=== PATIENT | female | born 1955 | race Caucasian/White ===

== ENCOUNTER → 2023-11-24 08:20 | Outpatient (REF) | payer MEDICARE, OTHER, SELFPAY | LOC: PAVMRI 08:20 | PROVIDERS: ATTENDING PHYSICIAN Physician Assistant | DX: M25.512 Pain in left shoulder (principal) | CPT/HCPCS: 73221 ==

== ENCOUNTER → 2023-12-06 09:51 | Outpatient (REF) | payer MEDICARE, OTHER, SELFPAY ==
[2023-12-06 13:33] LABS: ALT (SGPT) 27 U/L (0-35); AST (SGOT) 30 U/L (14-36); Albumin 4.5 g/dl (3.5-5.0); Alkaline Phosphatase 74 U/L (38-126); Blood Urea Nitrogen 22 mg/dl (7-17); Calcium 9.4 mg/dl (8.4-10.2); Carbon Dioxide 30 mmol/L (22-30); Chloride 97 mmol/L (98-107); Glucose 106 mg/dl (70-99); HDL Cholesterol 66 mg/dl; LDL Cholesterol, Calculated 90 mg/dl; Potassium 3.8 mmol/L (3.5-5.1); Sodium 138 mmol/L (135-145); Total Bilirubin 0.6 mg/dl (0.2-1.3); Total Cholesterol 185 mg/dl (50-199); Total Protein 7.2 g/dl (6.3-8.2); Triglyceride 146 mg/dl (10-149); Very Low Density Lipoprotein 29 mg/dl (0-30); eGFR > 60.00
[2023-12-06 13:46] LABS: TSH 0.76 uIU/ml (0.47-4.68)
== END ==
LOC: REG 09:51
PROVIDERS: ATTENDING PHYSICIAN Nurse Practitioner Family
DX: I10 Essential (primary) hypertension (principal); E03.9 Hypothyroidism, unspecified; E78.00 Pure hypercholesterolemia, unspecified; R74.8 Abnormal levels of other serum enzymes
CPT/HCPCS: 36415; 80053; 80061; 84443

== ENCOUNTER → 2023-12-09 06:29 | Day surgery (SDC) | payer MEDICARE, OTHER, SELFPAY | LOC: GI 06:29 | PROVIDERS: ATTENDING PHYSICIAN Internal Medicine | DX: K22.89 Other specified disease of esophagus (principal); K44.9 Diaphragmatic hernia without obstruction or gangrene; K31.89 Other diseases of stomach and duodenum; R07.9 Chest pain, unspecified | CPT/HCPCS: 43239; 88305 ==

== ENCOUNTER → 2023-12-13 07:51 | Outpatient (REF) | payer MEDICARE, OTHER, SELFPAY ==
[2023-12-13 08:57] LABS: Hemoglobin 11.8 g/dL (12.0-16.0); Mean Corp Hgb Conc. 31.9 g/dL (33.0-37.0); Mean Corpuscular Hgb 29.3 pg (27.0-31.0); Mean Corpuscular Volume 91.8 fL (81.0-99.0); Mean Platelet Volume 9.6 fL (7.4-10.4); Platelet Count 336 10^3/uL (130-400); Red Blood Cell Count 4.03 10^6/uL (4.20-5.40); Red Cell Dist. Width 13.2 % (11.5-14.5); White Blood Cell Count 6.7 10^3/uL (4.8-10.8)
[2023-12-13 09:29] LABS: Blood Urea Nitrogen 18 mg/dl (7-17); Calcium 9.5 mg/dl (8.4-10.2); Carbon Dioxide 29 mmol/L (22-30); Chloride 102 mmol/L (98-107); Glucose 111 mg/dl (70-99); Potassium 4.1 mmol/L (3.5-5.1); Sodium 138 mmol/L (135-145); eGFR > 60.00
== END ==
LOC: SDSPAT 07:51
PROVIDERS: ATTENDING PHYSICIAN Orthopaedic Surgery Hand Surgery; FAMILY PHYSICIAN Nurse Practitioner Family
DX: Z01.818 Encounter for other preprocedural examination (principal)
CPT/HCPCS: 36415; 80048; 85027; 93005

== ENCOUNTER 2023-12-28 06:08 | Day surgery (SDC) | payer MEDICARE, OTHER, SELFPAY ==
[2023-12-13 12:05] VITALS: BMI 28.4
[2023-12-28] VITALS (12 sets, daily range): BP systolic 128–154; BP diastolic 49–87; BMI 28.4
[2023-12-28] MEDS: CELEBREX 200 MG PO (06:35)
[2023-12-28] MEDS: TYLENOL 1000 MG PO (06:36)
[2023-12-28] MEDS: NORMOSOL-R 1000 IV (06:36)
[2023-12-28] MEDS: DILAUDID 0.25 MG IV ×2 (08:56→09:02)
[2023-12-28] MEDS: DILAUDID 0.5 MG IV ×2 (09:14→09:27)
[2023-12-28] MEDS: ROXICODONE 5 MG PO (11:11)
== END 2023-12-28 11:41 | disposition home or self-care (01) ==
LOC: SDS 06:08
PROVIDERS: ATTENDING PHYSICIAN Orthopaedic Surgery Hand Surgery
DX: M75.122 Complete rotator cuff tear or rupture of left shoulder, not specified as traumatic (principal); M75.42 Impingement syndrome of left shoulder; M25.712 Osteophyte, left shoulder; D17.9 Benign lipomatous neoplasm, unspecified; M19.012 Primary osteoarthritis, left shoulder
CPT/HCPCS: 29827; 29828; 29826; 88304; C1713

== ENCOUNTER 2023-12-30 23:04 | Observation (INO) | payer MEDICARE, OTHER, SELFPAY ==
[2023-12-30] VITALS (8 sets, daily range): BP systolic 138–164; BP diastolic 74–92; BMI 30.2
[2023-12-30 19:37] LABS: Glucose - Point of Care 93 mg/dl (70-99)
[2023-12-30 20:14] LABS: % Basophils 1.4 % (0-2); % Eosinophils 3.3 % (0-6); % Immature Granulocytes 0.5 % (0-0.5); % Lymphocytes 29.3 % (20.5-51.1); % Monocytes 8.3 % (1.7-9.3); % Neutrophils 57.2 % (42.2-75.2); Absolute Basophils 0.2 10^3/uL (0-0.2); Absolute Eosinophils 0.4 10^3/uL (0-0.7); Absolute Immature Granulocytes 0.1 10^3/uL (0-0.05); Absolute Lymphocytes 3.9 10^3/uL (1.2-3.4); Absolute Monocytes 1.1 10^3/uL (0.1-0.6); Absolute Neutrophils 7.5 10^3/uL (1.4-6.5); Hematocrit 37.4 % (37.0-47.0); Hemoglobin 12.1 g/dL (12.0-16.0); Mean Corp Hgb Conc. 32.4 g/dL (33.0-37.0); Mean Corpuscular Volume 92.6 fL (81.0-99.0); Mean Platelet Volume 9.6 fL (7.4-10.4); Nucleated Red Blood Cells % 0 %; Platelet Count 364 10^3/uL (130-400); Red Blood Cell Count 4.04 10^6/uL (4.20-5.40); Red Cell Dist. Width 13.9 % (11.5-14.5); White Blood Cell Count 13.2 10^3/uL (4.8-10.8)
[2023-12-30 20:20] LABS: ALT (SGPT) 36 U/L (0-35); AST (SGOT) 39 U/L (14-36); Albumin 4.6 g/dl (3.5-5.0); Alkaline Phosphatase 72 U/L (38-126); Blood Urea Nitrogen 27 mg/dl (7-17); Calcium 9.5 mg/dl (8.4-10.2); Carbon Dioxide 26 mmol/L (22-30); Chloride 101 mmol/L (98-107); Estimated Creatinine Clearance 43 ml/min; Glucose 101 mg/dl (70-99); Potassium 3.4 mmol/L (3.5-5.1); Sodium 136 mmol/L (135-145); Total Bilirubin 0.6 mg/dl (0.2-1.3); Total Protein 7.4 g/dl (6.3-8.2); eGFR 44.24
--- NOTE | 2023-12-30 22:10 | ED.GENMED ---
History of Present Illness
General
Chief Complaint: Change in Mental Status
Source: patient and family
Exam Limitations: none
Time Seen by Provider: 12/30/23 19:49
Nursing documentation reviewed up to this point in time: agreed with
Travel History
Have you had any contact with someone who has COVID-19?: No
Do you have any symptoms of coronavirus? Fever > 100 degrees, chills, cough, shortness of breath, sore throat, loss of taste or smell, muscle aches, or headache?: No
History of Present Illness
History of Present Illness:
Patient status post left shoulder surgery 3 days ago, presents ED secondary to sudden onset of confusion noted by spouse, shortly after having dinner this evening around 5:15 PM. For example, patient cannot recall what happened versus shoulder and
cannot recall her date of as well as the president of the country. There was no slurred speech, nor any other neurological deficit noted by family. Since then, her mental status has improved, but patient still having difficulty recalling
certain facts, including her daily medications. Otherwise, patient is only complaining of left shoulder pain and headache. Denies loss of sensation or weakness. Denies difficulty speech. Denies blurred vision denies dizziness. Denies previous
history of similar symptoms. Patient has been taking OxyContin for pain relief after procedure, but her last dose was this morning.
Past History
Past History
ED Past Medical History: HTN
ED Past Surgical History: Gynecological
Social History
Tobacco: Non-smoker
Alcohol: Occasional
Drug: None
Personal:
Living: with family
Employment: Employed
Review of Systems
Review of Systems
Allergies reviewed?: Yes
All Other Systems: ROS reviewed and negative except as documented in HPI and ROS
Constitutional: Reports no symptoms
EENT: Reports no symptoms
Respiratory: Reports no symptoms
Cardiac: Reports no symptoms
ABD/GI: Reports nausea and vomiting
: Reports no symptoms
Musculoskeletal: Reports no symptoms
Skin: Reports no symptoms
Neurological: Reports other (confusion)
Phy Exam
Physical Exam
Physical Exam:
Physical Exam
General: mild painful distress, not acutely ill. afebrile.
Head: nc/at. eomi
Neck: supple. no meningeal signs.
Heart: s1/s2 regular rate and rhythm, no murmur. equal radial pulses.
Lungs: no acute respiratory distress. clear bilaterally
Abdomen: normal bowel sounds. not tender.
Neuro: alert and oriented. no focal neurological deficits. normal speech.
Skin: no rash
Psychiatric: well kept. interactive and cooperative
Extremities: no edema. no calf tenderness.
Course
Orders/Labs/Results
Orders:
Orders
12/30/23 19:49
Electrocardiogram (*1) Urgent
Reason for Study: Other
Other Reason for Exam: change in mental status
12/30/23 19:50
EKG- Treatment ONCE
12/30/23 19:55
CMP [Comprehensive Metabolic Panel] Urgent
Complete Blood Count/With Diff Urgent
12/30/23 20:25
CT Head W/o Iv Contrast Urgent
Comment:
Reason For Exam: mental status change
12/30/23 22:07
Acetaminophen [Tylenol] 1,000 mg PO NOW STA
Aspirin 325 mg PO NOW STA
12/30/23 22:08
Acetaminophen [Tylenol] 1,000 mg .ROUTE .STK-MED ONE
Aspirin 325 mg .ROUTE .STK-MED ONE
12/30/23 22:50
Potassium Chloride [KCl] 40 meq PO NOW STA
12/30/23 22:55
Admit/Transfer Patient As Directed
Co-Sign Provider:
Level of Care: Observation services
Assign to:: Telemetry
Physician / Group: janet smyth
Diagnosis: TGA/TIA
Reason for Telemetry: CVA/TIA
Date to Stop Telemetry: 01/02/24
Time to Stop Telemetry: 11:00
12/30/23 22:56
Code Status As Directed
Resuscitation Status: Full Code
12/30/23 23:00
Flush (0.9% Sodium Chloride) [Flush (Nss)] See Dose Instructions IV PER PROTOCOL
12/30/23 23:41
Urinalysis Reflex To Culture Urgent
Date Specimen was Collected: 12/30/23
Time Specimen was Collected: 23:34
12/31/23 01:10
0.9% Sodium Chloride 1000 ml [Nss] 1,000 ml IV 80 mls/hr
0.9% Sodium Chloride [Nss (Preservative Free)] See Protocol IV PRN PRN
Acetaminophen [Tylenol/Feverall] 650 mg RECTAL Q4HPRN PRN
Acetaminophen [Tylenol] 650 mg PO Q4HPRN PRN
FOLic ACID [Folvite] 1 mg 0.9% Sodium Chloride 50 ml [Nss] 50 ml IV DAILYPRN
Lorazepam [Ativan] 1 mg IV Q1HPRN PRN
Lorazepam [Ativan] 1 mg PO Q2HPRN PRN
Lorazepam [Ativan] 2 mg IV Q1HPRN PRN
Oxycodone [Roxicodone] 5 mg PO Q6H PRN
12/31/23 01:10
Case Management Consult ONCE
Case Management Consult: Discharge Planning
Comment: stroke/tia
Case Management Consult Once
Case Management Consult: Other
Comment: Substance abuse counseling
DIETARY CONSULT Routine
Reason for Consult: Nutrition support, possible refeeding guidelines
DIETARY CONSULT Routine
Reason for Consult: stroke/TIA
NEUROLOGY CONSULT Urgent
Consulting Provider: Krystle Roman
Was physician already notified: Yes
[employer] Urgent
Activity As Directed
Activity Level: As Tolerated
MSAS SCORE As Directed
MSAS Score 0-4: Repeat MSAS every 2 hours until 0-4 for three consecutive assessments, then every 4 hours x 48
hours.
MSAS Score 5-7: For MILD withdrawl symptoms. Repeat MSAS and RASS every 2 hours
MSAS Score 8-11: For MODERATE withdrawal symptoms. Repeat MSAS and RASS every 1 hour. Consider ICU or IMU
level of care.
MSAS Score > 11: For SEVERE withdrawal symptoms. Repeat MSAS and RASS every 1 hour. Notify provider, consider
ICU level of care.
MSAS Additional Instructions: If no improvement or no decrease in score from severe to moderate within 12
hours, consult psychiatry
MSAS Notify Provider: Notify provider if patient requires more than 10 mg of Lorazepam in eight hour period.
NIH Stroke Scale As Directed
Directions: Per protocol
Comment: every shift and with any change in condition or mental status
Neurological Checks As Directed
Frequency: q4h
Additional Instructions:: q4h x 24h upon admission to the floor, then qshift & with any change in condition
and mental status
Patient Education As Directed
Type: Stroke education packet
Comment: provide to patient and family
Pneumatic Compression Sleeves As Directed
Type: Thigh high
Vital Signs As Directed
Frequency: Per unit guidelines
Ot Eval And Treat Routine
Pt Eval And Treat Routine
Activity Level: As Tolerated
DX Deep Vein Thrombosis Video Routine
12/31/23 01:26
B-Hydroxybutyrate Urgent
Basic Metabolic Panel IN AM
Cardiovascular Evaluation IN AM
Complete Blood Count/No Diff IN AM
GGTP Urgent
Glycohemoglobin (HgbA1c) Routine
Magnesium Urgent
Phosphorus Urgent
12/31/23 07:00
Levothyroxine [Synthroid] 100 mcg PO DAILY AT 0700
12/31/23 08:00
Aspirin Chewable [Low Strength Aspirin] 81 mg PO DAILY
Bupropion Regular Release [Wellbutrin Regular Release] 100 mg PO DAILY
Duloxetine Delayed Release [Cymbalta Delayed Release] 30 mg PO DAILY
FOLic ACID [Folvite] 1 mg PO DAILY
Gabapentin [Neurontin] 300 mg PO DAILY
Pantoprazole [Protonix] 40 mg PO DAILY
Thiamine Injection 200 mg IV Q12
doxycycline hyclate 100 mg PO BID
12/31/23 09:26
Urinalysis Routine
Date Specimen was Collected: 12/31/23
Time Specimen was Collected: 09:25
12/31/23 22:00
Famotidine [Pepcid] 20 mg PO HS
Rosuvastatin Calcium [Crestor] 5 mg PO HS
01/02/24 11:00
DC Protocol for Telemetry ONCE
01/03/24 08:00
Thiamine HCl [Vitamin B1] 100 mg PO BID
Abnormal Lab Results
12/30/23
19:55
WBC 13.2 H 10^3/uL
(4.8-10.8)
RBC 4.04 L 10^6/uL
(4.20-5.40)
MCHC 32.4 L g/dL
(33.0-37.0)
Abs Immat Gran (auto) 0.1 H 10^3/uL
(0-0.05)
Absolute Neuts (auto) 7.5 H 10^3/uL
(1.4-6.5)
Absolute Lymphs (auto) 3.9 H 10^3/uL
(1.2-3.4)
Absolute Monos (auto) 1.1 H 10^3/uL
(0.1-0.6)
Potassium 3.4 L mmol/L
(3.5-5.1)
BUN 27 H mg/dl
(7-17)
Creatinine 1.3 H mg/dL
(0.6-1.0)
Glucose 101 H mg/dl
(70-99)
AST 39 H U/L
(14-36)
ALT 36 H U/L
(0-35)
12/30/23 19:55
12/30/23 19:55
Vital Signs
Initial and Last Documented VS:
Initial Vital Signs
BP
164/81
12/30/23 19:33
Last Documented Vital Signs
Temp Pulse Resp BP Pulse Ox
98.8 F 108 17 146/80 95
12/31/23 11:59 12/31/23 11:59 12/31/23 11:59 12/31/23 11:59 12/31/23 11:59
MDM/Problems Addressed
MDM/Problems Addressed:
CT head: NAD.
Discussed with (neurology) - likely TGA, but difficult to exclude possible TIA. As such, recommends starting patient on aspirin and admitting for further observation.
*Critical Care Note
Total Time (30-74mins, 75-104mins- exclusive of procedures): Not Applicable
ED Attending Note
-
Portions of this chart may have been created with voice recognition software.� Occasional wrong word or��sound alike� substitutions may have occurred due to the inherent limitations of voice recognition software.
Discharge Plan
Departure
Patient Disposition: Admit
Date of Disposition: 12/30/23
Time of Disposition: 22:16
Presentation/result/management discussed w/ accepting MD/DO: Hospitalist
Discharge Problem:
Altered mental status
Interventions
Interventions:
*Risk Screen - Suicide Last Done: 12/30/23 19:36
*General Assessment Last Done: 12/30/23 19:36
*Neglect/Abuse Screening Last Done: 12/30/23 19:36
ED- Fall Risk Assessment Last Done: 12/30/23 19:50
*ED COVID-19 Vaccine History Last Done: 12/30/23 19:50
*Nursing Disposition Last Done: 12/31/23 01:14
ED- Pulmonary Assessment Last Done: 12/30/23 19:50
ED- Neurological Assessment Last Done: 12/30/23 19:50
ED- Cardiac Assessment Last Done: 12/30/23 19:50
ED Swallowing Screen Last Done: 12/30/23 20:05
Discharge Date and Time
Discharge Date/Time: 12/31/23 01:15
[2023-12-30] MEDS: TYLENOL 1000 MG PO (22:19)
[2023-12-30] MEDS: ASPIRIN 325 MG PO (22:19)
--- NOTE | 2023-12-30 22:24 | HPS.HSE ---
Family Physician
-
Family Physician: ARSH Bell
Chief Complaint
-
confusion
History of Present Illness
68 year old with PMH for hypothyroidism, htn, hld, kidney cysts, anxiety, GERD presented to us with sudden onset of confusion noted by spouse, shortly after having dinner this evening around 5:15 PM. she felt nauseous, went to the bedroom.
stated, she was not making any sense. she felt very scared. she forgot, she just had shoulder surgery cannot recall her date of as well as the president of the country. confusion lasted for one hour. denied slurred speech. denied Spencer, dizzy or
syncopal episode. denied chest pain, sob. denied abdominal pain, n,v,d. denied dysuria or hematuria. Patient has been taking OxyContin for pain relief after procedure, but her last dose was this morning.
Ct head with no acute finding. received a dose of aspirin in ER. admitting for management.
Medical History
Past Medical History
Past Medical History: Reports Other
Additional Past Medical History:
hypothyroidism, htn, hld, kidney cysts, anxiety, GERD
Past Surgical History: Reports Other
Additional Past Surgical History:
left shoulder reconstruction
right shoulder surgery
oophorectomy
right knee surgery
right elbow surgery
left eye surgery
Social History
Tobacco: Non-smoker
Alcohol: Daily (3 glasses of wine)
Drug: None
Personal:
Living: With Family
Family History
Family History: Not pertinent
Allergies / Home Medications
Allergies reflects when Allergies were last updated in [employer].
Home Medications with original date entered in [employer]
Allergy/Medication List:
Allergies
Allergy/AdvReac Type Severity Reaction Status Date / Time
Cephalosporins Allergy Severe Rash Verified 12/28/23 06:14
penicillin G Allergy Severe Rash Verified 12/28/23 06:14
Penicillins Allergy Severe Rash Verified 12/28/23 06:14
vancomycin AdvReac Severe Rash Verified 12/28/23 06:14
NOT.[id number] - Not Allergy Severe Unknown Uncoded 06/03/20 22:59
Converted 5. See Text.
Home Medications
levothyroxine 100 mcg tablet (Synthroid) 100 mcg PO DAILY 01/10/11
gabapentin 400 mg capsule 300 mg PO DAILY 09/03/15
hydrochlorothiazide 25 mg tablet 50 mg PO DAILY 09/03/15
famotidine 20 mg tablet 20 mg PO HS 12/24/23
omeprazole 20 mg tablet,delayed release 20 mg PO DAILY 12/24/23
rosuvastatin 5 mg tablet 5 mg PO HS 12/24/23
bupropion HCl 100 mg tablet 100 mg PO DAILY 12/30/23
doxycycline hyclate 100 mg tablet 100 mg PO BID 12/30/23
duloxetine 30 mg capsule,delayed release 30 mg PO DAILY 12/30/23
meloxicam 15 mg tablet 15 mg PO DAILY 12/30/23
oxycodone 5 mg tablet 5 mg PO Q6H PRN moderate pain 12/30/23
Review of Systems
-
Constitutional: Reports No Symptoms
EENT: Reports No Symptoms
Respiratory: Reports No Symptoms
Cardiac: Reports No Symptoms
Abdomen/GI: Reports No Symptoms
: Reports No Symptoms
Musculoskeletal: Reports No Symptoms
Skin: Reports No Symptoms
Neurological: Reports Other (confusion)
Endocrine: Reports No Symptoms
Hematologic/Lymphatic: Reports No Symptoms
Psych: Reports No Symptoms
Physical Exam
Vital Signs
Vital Signs
Temp Pulse Resp BP Pulse Ox
98.8 F 74 13 151/86 95
12/30/23 19:36 12/30/23 22:15 12/30/23 22:15 12/30/23 22:15 12/30/23 22:15
Physical Exam
General: Well Developed, Well Nourished and No Apparent Distress
HEENT: NormoCephalic, Moist mucous membranes and Atraumatic
Respiratory: Clear
Cardiac: S1/S2 and Regular Rhythm; No Murmur or Rub
GI: Soft, Non Tender, Non Distended and Normal Bowel Sounds; No Organomegaly
Rectal: Deferred by Provider
Musculoskeletal: No Clubbing, No Cyanosis, No Edema and Other (left shoulder dressing)
Skin: No Rash
Neuro: AO x 3 and Nonfocal/grossly intact
Psych: Calm
Laboratory Results
-
12/30/23 19:55
12/30/23 19:55
Laboratory Results
Total Bilirubin 0.6 mg/dl (0.2-1.3) 12/30/23 19:55
AST 39 U/L (14-36) H 12/30/23 19:55
ALT 36 U/L (0-35) H 12/30/23 19:55
Alkaline Phosphatase 72 U/L (38-126) 12/30/23 19:55
Data Reviewed
-
CT Scan: Report Reviewed by me
Lab Data: Labs Reviewed by me
Impression/Plan
-
# Sudden onset of confusion likely postprocedure transient global amnesia versus TIA
-CT head negative
-Aspirin continued
-continue neuro checks
-neurology consulted
# Status post elective left shoulder surgery
-oxy continued
# Leukocytosis likely stress reaction
-WBC 13.2,afebrile
-ctm
# Hypokalemia/acute kidney injury likely dehydration
-K3.4, creatinine 1.3
-normal saline continued
-kcl 40meq oral
-BMP in am
# Elevated transaminase likely dehydration
-AST 39, ALT 36
-fluids continued
#alcohol dependence
-drinks 3 glasses of wine daily
-monitor MSAS
-Not drinking since Wednesday
# Anxiety
-Bupropion continued
-Duloxetine continued
# GERD
-PPI continued
# Essential hypertension
-Hold HCTZ due to anthony and hypokalemia
# Hypothyroidism
-Levothyroxine continued
# Hyperlipidemia
-Statin continued
# DVT prophylaxis
-SCD
# CODE STATUS
-Full code
-
--- NOTE | 2023-12-30 22:48 | W.PN.UPDATE ---
Update Note
Progress Note Update
This update note is an addendum to H&P written by BEAN SNAPPER Ruth Banerjee.
I saw and examined the patient.
The BEAN SNAPPER's note was reviewed and I agree with the note.
Comment:
Ms. Negar Delatorre is a 68 yo woman with hx HTN, elective left shoulder surgery 3 days ago presents to the ER with sudden onset of confusion at home. Currently confusion is resolved.
Triage VS: T 98.8, P 76, RR 9, BP 153/92, SpO2 95%
LABS: WBC 13.2, Hg 12.1, PLT 364, Na 136, K+ 3.4, Cl 101, BUN 27, Cr 1.3, Glucose 101
MAR: tylenol and asa [address]
IMPRESSION:
No acute intracranial abnormality noted.
On exam patient is in no acute distress, AAO x3. Left arm with bandages, in sling. No edema. No focal neuro deficits (cannot test left arm).
Transient confusion
-may be 2/2 recent surgery/ effect of anesthesia/ oxycodone. Patient states she has only taken 4 oxycodone at home. She also stopped drinking post-op but presentation not typical for alcohol withdrawal
-admit to tele
-neuro checks
-s/p Asa in ER will continue
-ER discussed with Dr. Roman; given presentation more likely med effect hold off on further imaging for now until neurology evaluates tomorrow
Daily Alcohol use
-patient was drinking 3 glasses wine/day prior to surgery. Has not had a drink since Wednesday
-MSAS protocol
DVT PPx SCD
FULL CODE
[2023-12-31] VITALS (8 sets, daily range): BP systolic 126–154; BP diastolic 68–90; PULSE 79; O2SAT 100; BMI 28.7
[2023-12-31 00:02] LABS: Urine Albumin Negative (Neg - Trace); Urine Bilirubin Negative (Negative); Urine Character Clear (Clear); Urine Color Yellow; Urine Glucose Negative (Negative); Urine Ketone Negative (Negative); Urine Leukocyte Negative (Negative); Urine Nitrite Negative (Negative); Urine Occult Blood Negative (Negative); Urine Urobilinogen Negative (Neg - 1+)
[2023-12-31 01:32] LABS: Hematocrit 33.2 % (37.0-47.0); Hemoglobin 11.1 g/dL (12.0-16.0); Mean Corp Hgb Conc. 33.4 g/dL (33.0-37.0); Mean Corpuscular Hgb 29.6 pg (27.0-31.0); Mean Corpuscular Volume 88.5 fL (81.0-99.0); Mean Platelet Volume 9.1 fL (7.4-10.4); Platelet Count 303 10^3/uL (130-400); Red Blood Cell Count 3.75 10^6/uL (4.20-5.40); Red Cell Dist. Width 13.8 % (11.5-14.5); White Blood Cell Count 11.1 10^3/uL (4.8-10.8)
[2023-12-31] MEDS: ROXICODONE 5 MG PO ×3 (01:36→23:58)
[2023-12-31] MEDS: NSS 1000 IV (01:36)
[2023-12-31 01:56] LABS: Blood Urea Nitrogen 27 mg/dl (7-17); Calcium 9.3 mg/dl (8.4-10.2); Carbon Dioxide 27 mmol/L (22-30); Chloride 103 mmol/L (98-107); Estimated Creatinine Clearance 49 ml/min; Glucose 106 mg/dl (70-99); HDL Cholesterol 62 mg/dl; LDL Cholesterol, Calculated 68 mg/dl; Potassium 3.9 mmol/L (3.5-5.1); Sodium 139 mmol/L (135-145); Total Cholesterol 170 mg/dl (50-199); Triglyceride 203 mg/dl (10-149); Very Low Density Lipoprotein 40 mg/dl (0-30); eGFR 54.06
[2023-12-31] MEDS: KCL 40 MEQ PO (01:56)
[2023-12-31 01:57] LABS: GGTP 24 U/L (12-43); Magnesium 1.6 mg/dl (1.6-2.3); Phosphorus 4.8 mg/dl (2.5-4.5)
--- NOTE | 2023-12-31 03:00 | PTCARENOTE ---
pt is aaox3, but a little forgetful. NIH=0 and MSAS=0. pt right pupil=5mm. 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 pt surgical dressing c/d/i. pt reports headache- see MAR w/ pain medication w/+eff. pt is
oriented to room w/ call shaikh in reach.
[2023-12-31] MEDS: SYNTHROID 100 MCG PO (06:00)
[2023-12-31] MEDS: NEURONTIN 300 MG PO (08:52)
[2023-12-31] MEDS: LOW STRENGTH ASPIRIN 81 MG PO (08:52)
[2023-12-31] MEDS: FOLVITE 1 MG PO (08:52)
[2023-12-31] MEDS: PROTONIX 40 MG PO (08:52)
[2023-12-31] MEDS: CYMBALTA DELAYED RELEASE 30 MG PO (08:52)
[2023-12-31] MEDS: WELLBUTRIN REGULAR RELEASE 100 MG PO (08:53)
[2023-12-31] MEDS: THIAMINE INJECTION 200 MG IV ×2 (08:53→20:58)
--- NOTE | 2023-12-31 09:11 | CON.NEURO4 ---
Consultation - Neurology 4
-
CONSULTING PHYSICIAN: Lg Yang
REFERRING PHYSICIAN: Hospitalist
DICTATED BY: Lg Yang
DATE/TIME OF REQUEST: 12/31/23
DATE/TIME OF CONSULTATION: 12/31/23
Reason for Consultation: Confusion
History of Present Illness:
Patient is a 68-year-old right-handed woman with a past ministry of hypertension hyperlipidemia and depression who had recent left-sided rotator cuff surgery on 12/26 and developed symptoms of confusion and memory loss acutely yesterday afternoon
around dinnertime 5 PM. Symptoms were noted by her and she was brought into the ER. Patient can recall yesterday's events vaguely saying that she remembers going upstairs and vomiting and then having difficulty remembering that she had had
surgery. She can vaguely member being in the ambulance and coming into the ER and having family members by her. She did not have any vision change or unilateral paresthesia or weakness. She has not had any instances like this ever before. She
has tolerated oxycodone in the past after shoulder surgery without any problems to her recollection. She feels fairly normal at this time not having any confusion or speech difficulty. Does have some occasional head and neck pain and says she has
chronic neck problems. Denies any recreational drug use. Reports she can drink 2 or 3 glasses of wine most nights and then go without any alcohol for long periods of time 2 weeks without any problems no history of any withdrawal or tremor
confusion after stopping alcohol.
Past Medical History: GERD, depression, hyperlipidemia, hypertension
Surgical History: Right shoulder surgery, recent left shoulder rotator cuff repair 12/26
Family History: Hypertension in the family
Social History: Retired and lives with her , no tobacco, average 2-3 glasses of wine a night sometimes for a week, and then not drinking at all for a while, no history of symptoms after alcohol cessation no tremor or withdrawal or confusion,
no recreational drugs
Review of Symptoms:
Patient denies any fever, headache, chest pain, shortness of breath, GI or symptoms.
Physical Exam:
Well-appearing middle-aged woman appears younger than her stated age no signs of head or neck trauma eyes are clear oropharynx is clear left shoulder is in a cast, neck with no masses, heart rate regular breathing unlabored abdomen soft nontender no
lower extremity edema or joint deformity or rashes seen
Neurologic Examination:
Patient fully awake and oriented to month, year, president. Knows past 3 presidents correctly. Names months of the backwards well. Serial 7 subtraction adequate. Memory recall 3/5 after 5 minutes and 5/5 with categorical hints. Praxis normal.
No neglect. Knows current events with recent holidays and the eclipse. There is no aphasia or dysarthria. On cranial nerve assessment, pupils are 3 mm bilateral, round and reactive to light and accommodation. Visual ovalle are full. Extraocular
movements are intact. Facial sensations are intact and bilaterally symmetrical, there is no facial asymmetry. Hearing is intact bilaterally to normal conversation volume. Tongue palate and uvula are midline. Sternocleidomastoid strengths are full
bilaterally. Motor strengths are 5/5 bilateral upper and lower extremities on medical research Tanana scale. There is no drift or involuntary movement noted. Deep tendon reflexes are 2+ bilateral upper and lower extremities and Babinski is absent
bilaterally. Sensations of pain, touch, temperature and vibration are intact and bilaterally symmetrical. There was no extinction noted on double simultaneous stimulation. Coordination is intact by finger to nose bilaterally.
Neuro Imaging: CT head unremarkable
Impressions
1. Several hours of transient confusion and memory loss. Little to no symptoms now and shows normal neurologic examination. Differential diagnosis would include transient global amnesia, metabolic encephalopathy after surgery infarct due to
postoperative surgery status opioid pain medication and gabapentin is SAUSAGE STUFFER acting medications, less likely TIA or minor stroke but would remain in the differential diagnosis, has stroke risk factors of age hypertension hyperlipidemia. Not show any
signs of alcohol withdrawal.
2.
3.
4.
Recommendations:
1. Continue aspirin 81 mg daily
2. Pursue goal normotension
3. Neurologic checks and NIH stroke scales
4. Continue IV thiamine and folate
5. Will check MRI of the brain and MRA of the head without contrast and MRA of the neck with contrast
Discussed patient care with: Patient
[2023-12-31 09:39] LABS: Urine Albumin Negative (Neg - Trace); Urine Bilirubin Negative (Negative); Urine Character Clear (Clear); Urine Color Yellow; Urine Glucose Negative (Negative); Urine Ketone Negative (Negative); Urine Leukocyte Negative (Negative); Urine Nitrite Negative (Negative); Urine Occult Blood Negative (Negative); Urine Urobilinogen Negative (Neg - 1+)
[2023-12-31 09:58] LABS: Glycohemoglobin (HgbA1c) 5.9 % (4.0-5.6)
--- NOTE | 2023-12-31 11:40 | W.PN.HOSP.TC ---
Today's Communication/Plan
-
MRi pending
IVF
Assessment / Plan
Assessment / Plan
General: Well Developed, Well Nourished and No Apparent Distress
HEENT: NormoCephalic, Moist mucous membranes and Atraumatic
Respiratory: Clear
Cardiac: S1/S2 and Regular Rhythm; No Murmur or Rub
GI: Soft, Non Tender, Non Distended and Normal Bowel Sounds; No Organomegaly
Rectal: Deferred by Provider
Musculoskeletal: No Clubbing, No Cyanosis, No Edema and Other (left shoulder dressing)
Skin: No Rash
Neuro: AO x 3 and Nonfocal/grossly intact
Psych: Calm
# Sudden onset of confusion likely postprocedure transient global amnesia versus rule out CVA versus metabolic encephalopathy due to pain medication
-CT head negative
-Aspirin continued
-continue neuro checks
-MRA ordered by neurology.
-neurology consulted
# Essential hypertension
-Hold HCTZ due to elevated Cr and hypokalemia
-High dose of HCTZ 50mg
# Status post elective left shoulder surgery
-oxy continued
# Leukocytosis likely stress reaction
-Improving.
-ctm
# Hypokalemia
# Elevated creatinine
-Creatinine improving.
# Elevated transaminase likely dehydration
-AST 39, ALT 36
-fluids continued
#alcohol dependence
-drinks 3 glasses of wine daily
-monitor MSAS
-Not drinking since Wednesday
# Anxiety
-Bupropion continued
-Duloxetine continued
# GERD
-PPI continued
# Hypothyroidism
-Levothyroxine continued
# Hyperlipidemia
-Statin continued
# DVT prophylaxis
-SCD/asa
# CODE STATUS
-Full code
d/w with spouse at bedside in details
Anticipated Discharge: Within 24 hours
Subjective/Interval History
-
Date of Service: December 31, 2023
sitting in chair
states of left shoulder pain
unable to recall events from yesterday
Objective Data
-
Labs:
Laboratory Results
12/31/23
01:26
WBC 11.1 H
Hgb 11.1 L
Hct 33.2 L
Plt Count 303
Sodium 139
Potassium 3.9
Chloride 103
Carbon Dioxide 27
BUN 27 H
Creatinine 1.1 H
Glucose 106 H
Calcium 9.3
Vital Signs:
Vital Signs
Temp Pulse Resp BP Pulse Ox
97 F 79 16 153/82 96
12/31/23 07:55 12/31/23 07:55 12/31/23 07:55 12/31/23 07:55 12/31/23 07:55
I&O
12/30/23 12/31/23 01/01/24
06:59 06:59 06:59
Intake Total 880 / 880
Balance 880 / 880
[2023-12-31] MEDS: TYLENOL 650 MG PO ×2 (12:02→20:59)
[2023-12-31] MEDS: NSS (PRESERVATIVE FREE) 0.25 ML IV (14:47)
[2023-12-31] MEDS: ATIVAN 0.5 MG IV (14:48)
[2023-12-31] MEDS: PEPCID 20 MG PO (20:59)
[2023-12-31] MEDS: CRESTOR 5 MG PO (20:59)
[2024-01-01 03:11] VITALS: BP 129/78
[2024-01-01] MEDS: SYNTHROID 100 MCG PO (05:59)
[2024-01-01 07:10] VITALS: BP 134/78
--- NOTE | 2024-01-01 07:11 | CM ---
met with patient 12/31/23 at [facility].she lives with her in house with 3 jaelyn,her bed abd bath is on the second floor,she amb i and is i withher yves's.she sees a doctor from [facility] for her pcp and she uses [facility] in
[facility].her daughter eagle is her poa.
patient with recent left rotator cuff surgery is adm with sudden onset of confusion.she had an mri/mra of brain.i spoke with patient about her daily etoh use and she has declinded assisance/couneling from [facility].she was seen by pt.patient will
discharge home with no needs when stable.she has a very supportive and daughter is able to assist her.Plan:dc home with no needs.
--- NOTE | 2024-01-01 07:12 | W.PN.NEURO.1 ---
Today's Communication / Plan
-
-Can stop aspirin as I do not feel this is a TIA, no strong indication for chronic antiplatelet therapy
-Goal normotension
-No restrictions moving still forward from my standpoint
-No further monitoring or neurologic workup felt necessary, no barriers to discharge from my standpoint
Neuro Assessment/Plan
Assessment
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
memory difficulty presenting the hospital with the symptoms.
Patient has shown improvement with normal neurologic examination at this point
MRI of the brain and MRA of the head and neck are reassuring, brain appears quite healthy for her age there is no acute or chronic infarct and minimal microangiopathic ischemic disease no significant vessel abnormalities on the MRA of the head or
neck
This is presumed to be a toxic metabolic encephalopathy after major surgery with some FISHER SWORDFISH acting medications gabapentin as well as opioids postoperatively as main contributors to her symptoms. Timeline of her symptoms seems far too long for this to
be a TIA.
Subjective/Objective
Subjective Data
Date of Service: January 01, 2024
No acute events, patient feeling pretty well, left shoulder pain present, no speech difficulty or neurologic symptoms
Objective Data
Vital Signs
Temp Pulse Resp BP Pulse Ox
98.1 F 70 17 129/78 98
01/01/24 03:11 01/01/24 03:11 01/01/24 03:11 01/01/24 03:11 01/01/24 03:11
Lab Results
12/31/23 01:26
12/31/23 01:26
Sodium 139 mmol/L (135-145) 12/31/23 01:26
Potassium 3.9 mmol/L (3.5-5.1) 12/31/23 01:26
BUN 27 mg/dl (7-17) H 12/31/23 01:26
Glucose 106 mg/dl (70-99) H 12/31/23:
Calcium 9.3 mg/dl (8.4-10.2) 12/31/23:
Phosphorus 4.8 mg/dl (2.5-4.5) H 12/31/23:
LDL Cholesterol, Calc 68 mg/dl 12/31/23:
Patient Allergies
Cephalosporins Allergy (Severe, Verified 12/28/23 06:14)
Rash
penicillin G Allergy (Severe, Verified 12/28/23 06:14)
Rash
Penicillins Allergy (Severe, Verified 12/28/23 06:14)
Rash
vancomycin Adverse Reaction (Severe, Verified 12/28/23 06:14)
Rash
NOT.[id number] - Not Converted 5. See Text. Allergy (Severe, Uncoded 06/03/20 22:59)
Unknown
Review of Systems
-
History Source: Patient
All other systems: Reviewed and negative
Constitutional: No Symptoms
EENT: No Symptoms Reported
Respiratory: No Symptoms
Cardiac: No Symptoms
Abdomen/GI: No Symptoms
Genitourinary: No Symptoms
Musculoskeletal: No Symptoms
Skin: No Symptoms
Neuro: See existing Neuro Note
Endocrine: No Symptoms
Hematologic / Lymphatic: No Symptoms
Allergy / Immunology: No Symptoms
Physical Exam
-
General: Comfortable
Eyes: Other (Left prosthetic eye no abnormalities)
HEENT: Normocephalic
Neck: No Bruits Bilaterally
Respiratory: Clear to Auscultation
Cardiac: Regular Rhythm
GI: Normal Bowel Sounds
Skin: Unremarkable
Extremities: No Clubbing
Psych: Unremarkable and Intact Judgement/Insight; Negative Confused
Extended Neurological Exam
Mood & Affect: Mood Unremarkable and Affect Unremarkable
Attention Span & Concentration: Awake, Alert, Interactive and No Difficulty with 2 Step Request
Memory: Able to Recall
Tremor: Hand Tremor Absent
Involuntary Movement: None
Speech: Quality Unremarkable and Quantity Unremarkable; Negative Expressive Aphasia, Receptive Aphasia or Dysarthric
Cranial Nerve II: Left Eye: Pupillary Reactivity Unremarkable, Pupillary Size Unremarkable and Visual Sim Intact
Cranial Nerve II: Right Eye: Pupillary Reactivity Unremarkable, Pupillary Size Unremarkable and Visual Sim Intact
Cranial Nerves III, IV, : Extraocular Movement: Extraocular Movement Full in all Directions
Cranial Nerve VII: Facial Symmetry: Normal Facial Symmetry
Muscle Strength, Overall: Other (5/5 right shoulder abduction and hip flexion bilaterally, normal order packer or packager strength and arm flexion on left arm (shoulder cast from shoulder surgery prohibits full evaluation))
Deep Tendon Reflexes: Unremarkable Throughout
Data Reviewed
-
MRI Head: Report Reviewed and Image Reviewed
MRA Head: Report Reviewed and Image Reviewed
MRA Neck: Report Reviewed and Image Reviewed
Labs: Report Reviewed
[2024-01-01] MEDS: NEURONTIN 300 MG PO (08:22)
[2024-01-01] MEDS: PROTONIX 40 MG PO (08:22)
[2024-01-01] MEDS: LOW STRENGTH ASPIRIN 81 MG PO (08:22)
[2024-01-01] MEDS: CYMBALTA DELAYED RELEASE 30 MG PO (08:22)
[2024-01-01] MEDS: THIAMINE INJECTION 200 MG IV (08:22)
[2024-01-01] MEDS: FOLVITE 1 MG PO (08:22)
[2024-01-01] MEDS: WELLBUTRIN REGULAR RELEASE 100 MG PO (08:22)
[2024-01-01] MEDS: ROXICODONE 5 MG PO (08:29)
--- NOTE | 2024-01-01 10:46 | W.PN.HOSP.TC ---
Today's Communication/Plan
-
dc home
Assessment / Plan
Assessment / Plan
General: Well Developed, Well Nourished and No Apparent Distress
HEENT: NormoCephalic, Moist mucous membranes and Atraumatic
Respiratory: Clear
Cardiac: S1/S2 and Regular Rhythm; No Murmur or Rub
GI: Soft, Non Tender, Non Distended and Normal Bowel Sounds; No Organomegaly
Rectal: Deferred by Provider
Musculoskeletal: No Clubbing, No Cyanosis, No Edema and Other (left shoulder dressing)
Skin: No Rash
Neuro: AO x 3 and Nonfocal/grossly intact
Psych: Calm
# Sudden onset of confusion likely postprocedure transient global amnesia versus metabolic encephalopathy due to pain medication
-CT head negative
-Aspirin continued
-continue neuro checks
-MRA ordered by neurology. MRI brain negative. Brain MRI negative for stenosis or aneurysm. DC aspirin.
-neurology consulted
# Essential hypertension
Restart HCTZ. Per patient on HCTZ for prolonged period of time. Recommended outpatient primary doctor follow-up for chest pain. Patient stated she will follow-up next week with PCP
# Status post elective left shoulder surgery
-oxy continued
# Leukocytosis likely stress reaction
-Improving.
-ctm
# Hypokalemia
# Elevated creatinine
-Creatinine improving.
# Elevated transaminase likely dehydration
-AST 39, ALT 36
-fluids continued
#alcohol dependence
-drinks 3 glasses of wine daily
-monitor MSAS
-Not drinking since Wednesday. Recommended on complete cessation especially while on blood pressure medication and gabapentin. Patient verbalized understanding.
# Anxiety
-Bupropion continued
-Duloxetine continued
# GERD
-PPI continued
# Hypothyroidism
-Levothyroxine continued
# Hyperlipidemia
-Statin continued
# DVT prophylaxis
-SCD/asa
# CODE STATUS
-Full code
More than 30 minutes spent in discharge including
Final examination of the patient
Summarizing hospital stay
Instructions for continuing care to all relevant caregivers
Preparation of discharge records, prescriptions, and referral forms
Total time spent (in minutes): 52
Anticipated Discharge: Today
Subjective/Interval History
-
Date of Service: January 01, 2024
States feeling back to baseline
States she could have been mild foggy yesterday
States left shoulder pain is significantly improved
Objective Data
-
Vital Signs:
Vital Signs
Temp Pulse Resp BP Pulse Ox
97.6 F 72 12 134/78 95
01/01/24 07:10 01/01/24 07:10 01/01/24 07:10 01/01/24 07:10 01/01/24 07:10
I&O
12/31/23 01/01/24 01/02/24
06:59 06:59 06:59
Intake Total 880 / 880 1520 / 1520
Balance 880 / 880 1520 / 1520
--- NOTE | 2024-01-01 10:51 | W.DCSUMMARY ---
Discharge Summary
Discharge Data
Date of Admission: 12/30/23
Date of Discharge: 01/01/24
-
Pending Results: No
Hospital Course
68-year-old female past medical history of depression, alcohol abuse, neuropathy, primary hypertension, hypothyroidism who was presented with episode of confusion. Patient stated unable to recall events. Patient underwent CT of the head which is
negative for acute pathology. Patient was eval by neurology and patient underwent MRI. MRI brain negative for acute stroke. MRA head and neck negative for acute stenosis or aneurysm. Patient symptomatology was suspected due to transient global
amnesia versus metabolic encephalopathy secondary to being recently started on oxycodone. Patient did undergo recent left shoulder surgery. Patient mentation improved and was back to baseline. Patient with hypokalemia repleted. Patient was also
recommended to follow-up with primary doctor in regards to discuss blood pressure management is on high-dose hydrochlorothiazide. Patient will make appointment to discuss further with PCP.
Discharge Plan
-
Patient Disposition: Home (Routine Discharge)
Discharge Diagnosis/Procedures: Transient global amnesia versus metabolic encephalopathy likely secondary to medication versus dehydration
Condition: Fair
Diet: As tolerated
Activity: With assistance and As tolerated
Driving Restrictions: As prior to admission
Referrals:
Berkley Wood CRNP [Family Provider] - in less than 1 week
Prescriptions:
Continued
levothyroxine [Synthroid] 100 MCG tablet
100 mcg PO DAILY
hydrochlorothiazide 25 MG tablet
50 mg PO DAILY
gabapentin 400 MG capsule
300 mg PO DAILY
famotidine 20 mg Tablet
20 mg PO HS
rosuvastatin 5 mg Tablet
5 mg PO HS
omeprazole 20 mg Tablet,Delayed Release (Dr/Ec)
20 mg PO DAILY
bupropion HCl 100 mg tablet
100 mg PO DAILY
oxycodone 5 mg tablet
5 mg PO Q6H PRN (Reason: moderate pain)
Patient Comments:
12/30/2023: last filled 12/28/23, 12 tabs for 3 days from [id number]
duloxetine 30 mg capsule,delayed release(DR/EC)
30 mg PO DAILY
Discontinued
meloxicam 15 mg tablet
15 mg PO DAILY
doxycycline hyclate 100 mg tablet
100 mg PO BID
Discharge Orders:
Discharge Patient (As Directed); Ordered 01/01/24
Ordered By: Jamie Estevez
Discharge Date and Time
Discharge Date/Time: 01/01/24 12:12
Print Language: MALTESE
[2024-01-01 11:05] VITALS: BP 136/78
--- NOTE | 2024-01-01 11:21 | CM ---
CM reviewed chart and noted dc order
Bedside meeting with pt- no dc needs noted
VALLE verbally reviewed- copy provided
Discharge Disposition- home, no needs- spouse transport
== END 2024-01-01 12:12 | disposition home or self-care (01) ==
LOC: 2 SOUTH 23:04
PROVIDERS: Registered Nurse; ADMITTING PHYSICIAN Student in an Organized Health Care Education/Training Program; ATTENDING PHYSICIAN Hospitalist; EMERGENCY PHYSICIAN Emergency Medicine; FAMILY PHYSICIAN Nurse Practitioner Family; OTHER PHYSICIAN Student in an Organized Health Care Education/Training Program
DX: R41.0 Disorientation, unspecified (principal); E03.9 Hypothyroidism, unspecified; E78.5 Hyperlipidemia, unspecified; I10 Essential (primary) hypertension; F41.9 Anxiety disorder, unspecified; K21.9 Gastro-esophageal reflux disease without esophagitis; N17.9 Acute kidney failure, unspecified; E87.6 Hypokalemia; F10.20 Alcohol dependence, uncomplicated; F32.A Depression, unspecified; Z79.1 Long term (current) use of non-steroidal anti-inflammatories (NSAID); Z79.899 Other long term (current) drug therapy
CPT/HCPCS: 70450; 70544; 70548; 70551; 80048; 80053; 80061; 81003; 82010; 82962; 82977; 83036; 83735; 84100; 85025; 85027; 93005; 97116; 97162; 97167; 97535; 99285; A9585; G0378

== ENCOUNTER → 2024-08-18 10:42 | Outpatient (REF) | payer MEDICARE, OTHER, SELFPAY ==
[2024-08-18 12:17] LABS: % Basophils 1.3 % (0-2); % Immature Granulocytes 1.6 % (0-0.5); % Lymphocytes 29.1 % (20.5-51.1); % Monocytes 11.1 % (1.7-9.3); % Neutrophils 53.9 % (42.2-75.2); Absolute Basophils 0.1 10^3/uL (0-0.2); Absolute Eosinophils 0.2 10^3/uL (0-0.7); Absolute Immature Granulocytes 0.1 10^3/uL (0-0.05); Absolute Monocytes 0.8 10^3/uL (0.1-0.6); Absolute Neutrophils 3.8 10^3/uL (1.4-6.5); Hemoglobin 12.8 g/dL (12.0-16.0); Mean Corp Hgb Conc. 32.8 g/dL (33.0-37.0); Mean Corpuscular Hgb 30.8 pg (27.0-31.0); Mean Corpuscular Volume 93.8 fL (81.0-99.0); Mean Platelet Volume 9.6 fL (7.4-10.4); Nucleated Red Blood Cells % 0 %; Platelet Count 340 10^3/uL (130-400); Red Blood Cell Count 4.16 10^6/uL (4.20-5.40); Red Cell Dist. Width 13.1 % (11.5-14.5)
[2024-08-18 12:34] LABS: ALT (SGPT) 37 U/L (0-35); AST (SGOT) 70 U/L (14-36); Albumin 4.5 g/dl (3.5-5.0); Alkaline Phosphatase 54 U/L (38-126); Blood Urea Nitrogen 22 mg/dl (7-17); Calcium 9.8 mg/dl (8.4-10.2); Carbon Dioxide 32 mmol/L (22-30); Chloride 100 mmol/L (98-107); Glucose 102 mg/dl (70-99); HDL Cholesterol 82 mg/dl; LDL Cholesterol, Calculated 89 mg/dl; Potassium 4.5 mmol/L (3.5-5.1); Sodium 140 mmol/L (135-145); Total Bilirubin 0.5 mg/dl (0.2-1.3); Total Cholesterol 184 mg/dl (50-199); Total Protein 7.1 g/dl (6.3-8.2); Triglyceride 65 mg/dl (10-149); Very Low Density Lipoprotein 13 mg/dl (0-30); eGFR > 60.00
[2024-08-18 13:10] LABS: TSH Reflex To Free T4 1.62 uIU/ml (0.47-4.68)
== END ==
LOC: REG 10:42
PROVIDERS: ATTENDING PHYSICIAN Nurse Practitioner Family
DX: E03.9 Hypothyroidism, unspecified (principal); F10.10 Alcohol abuse, uncomplicated; I10 Essential (primary) hypertension; E78.00 Pure hypercholesterolemia, unspecified; R74.8 Abnormal levels of other serum enzymes
CPT/HCPCS: 36415; 80053; 80061; 84443; 85025

== ENCOUNTER → 2024-10-11 11:36 | Outpatient (REF) | payer MEDICARE, OTHER, SELFPAY ==
[2024-10-11 13:10] LABS: % Basophils 1.7 % (0-2); % Eosinophils 2.9 % (0-6); % Immature Granulocytes 0.4 % (0-0.5); % Lymphocytes 28.7 % (20.5-51.1); % Monocytes 9.5 % (1.7-9.3); % Neutrophils 56.8 % (42.2-75.2); Absolute Basophils 0.1 10^3/uL (0-0.2); Absolute Eosinophils 0.2 10^3/uL (0-0.7); Absolute Lymphocytes 2.3 10^3/uL (1.2-3.4); Absolute Monocytes 0.8 10^3/uL (0.1-0.6); Absolute Neutrophils 4.6 10^3/uL (1.4-6.5); Hematocrit 38.2 % (37.0-47.0); Hemoglobin 12.3 g/dL (12.0-16.0); Mean Corp Hgb Conc. 32.2 g/dL (33.0-37.0); Mean Corpuscular Hgb 29.9 pg (27.0-31.0); Mean Corpuscular Volume 92.7 fL (81.0-99.0); Mean Platelet Volume 9.7 fL (7.4-10.4); Nucleated Red Blood Cells % 0 %; Platelet Count 369 10^3/uL (130-400); Red Blood Cell Count 4.12 10^6/uL (4.20-5.40); Red Cell Dist. Width 13.5 % (11.5-14.5)
[2024-10-11 13:47] LABS: ALT (SGPT) 29 U/L (0-35); AST (SGOT) 33 U/L (14-36); Albumin 4.5 g/dl (3.5-5.0); Alkaline Phosphatase 78 U/L (38-126); Blood Urea Nitrogen 30 mg/dl (7-17); Calcium 9.3 mg/dl (8.4-10.2); Carbon Dioxide 30 mmol/L (22-30); Chloride 99 mmol/L (98-107); Glucose 98 mg/dl (70-99); HDL Cholesterol 76 mg/dl; LDL Cholesterol, Calculated 125 mg/dl; Potassium 4.5 mmol/L (3.5-5.1); Sodium 140 mmol/L (135-145); Total Bilirubin 0.3 mg/dl (0.2-1.3); Total Cholesterol 228 mg/dl (50-199); Total Protein 7.1 g/dl (6.3-8.2); Triglyceride 135 mg/dl (10-149); Very Low Density Lipoprotein 27 mg/dl (0-30); eGFR > 60.00
[2024-10-11 14:14] LABS: TSH Reflex To Free T4 1.61 uIU/ml (0.47-4.68)
== END ==
LOC: REG 11:36
PROVIDERS: ATTENDING PHYSICIAN Nurse Practitioner Family
DX: E03.9 Hypothyroidism, unspecified (principal); F10.10 Alcohol abuse, uncomplicated; I10 Essential (primary) hypertension; E78.00 Pure hypercholesterolemia, unspecified; R74.8 Abnormal levels of other serum enzymes
CPT/HCPCS: 36415; 80053; 80061; 84443; 85025

== ENCOUNTER → 2025-01-23 07:56 | Outpatient (REF) | payer MEDICARE, OTHER, SELFPAY | LOC: HWRAD 07:56 | PROVIDERS: ATTENDING PHYSICIAN Nurse Practitioner Family | DX: R10.9 Unspecified abdominal pain (principal) | CPT/HCPCS: 76770 ==

== ENCOUNTER → 2025-03-06 09:44 | Outpatient (REF) | payer MEDICARE, OTHER, SELFPAY ==
[2025-03-07 20:10] LABS: H. pylori Breath Test Negative (Negative)
== END ==
LOC: REG 09:44
PROVIDERS: ATTENDING PHYSICIAN Nurse Practitioner Family
DX: R14.0 Abdominal distension (gaseous) (principal)
CPT/HCPCS: 36415; 83013

== ENCOUNTER → 2025-07-20 14:26 | Outpatient (REF) | payer MEDICARE, OTHER, SELFPAY | LOC: WDC 14:26 | PROVIDERS: ATTENDING PHYSICIAN Obstetrics & Gynecology Gynecology; FAMILY PHYSICIAN Nurse Practitioner Family | DX: Z12.31 Encounter for screening mammogram for malignant neoplasm of breast (principal) | CPT/HCPCS: 77063; 77067 ==

== ENCOUNTER → 2025-08-21 13:22 | Outpatient (REF) | payer MEDICARE, OTHER, SELFPAY ==
[2025-08-21 14:57] LABS: Hematocrit 36.8 % (37.0-47.0); Hemoglobin 11.5 g/dL (12.0-16.0); Mean Corp Hgb Conc. 31.3 g/dL (33.0-37.0); Mean Corpuscular Volume 98.1 fL (81.0-99.0); Nucleated Red Blood Cells % 0 %; Platelet Count 391 10^3/uL (130-400); Red Cell Dist. Width 13.3 % (11.5-14.5)
[2025-08-21 15:21] LABS: ALT (SGPT) 31 U/L (0-35); AST (SGOT) 32 U/L (14-36); Albumin 4.5 g/dl (3.5-5.0); Alkaline Phosphatase 62 U/L (38-126); Blood Urea Nitrogen 19 mg/dl (7-17); Calcium 9.3 mg/dl (8.4-10.2); Carbon Dioxide 29 mmol/L (22-30); Chloride 102 mmol/L (98-107); Glucose 95 mg/dl (70-99); HDL Cholesterol 76 mg/dl; LDL Cholesterol, Calculated 158 mg/dl; Potassium 4.0 mmol/L (3.5-5.1); Sodium 137 mmol/L (135-145); Total Protein 7.3 g/dl (6.3-8.2); Very Low Density Lipoprotein 35 mg/dl (0-30); eGFR > 60.00
[2025-08-22 10:21] LABS: Iron 91 ug/dl (37-170)
[2025-08-22 11:09] LABS: Folate 13.9 ng/ml (2.76-20); Vitamin B12 555 pg/ml (239-931)
== END ==
LOC: RAD 13:22
PROVIDERS: ATTENDING PHYSICIAN Nurse Practitioner Family
DX: E78.00 Pure hypercholesterolemia, unspecified (principal); R74.8 Abnormal levels of other serum enzymes; D64.9 Anemia, unspecified; D51.9 Vitamin B12 deficiency anemia, unspecified
CPT/HCPCS: 36415; 80053; 80061; 82607; 82746; 83540; 84443; 85025

== ENCOUNTER → 2025-09-04 13:22 | Outpatient (REF) | payer MEDICARE, OTHER, SELFPAY | LOC: RAD 13:22 | PROVIDERS: ATTENDING PHYSICIAN Nurse Practitioner Family | DX: M25.551 Pain in right hip (principal) | CPT/HCPCS: 73502 ==

== ENCOUNTER → 2025-09-10 15:34 | Outpatient (REF) | payer MEDICARE, OTHER, SELFPAY | LOC: RAD 15:34 | PROVIDERS: ATTENDING PHYSICIAN Nurse Practitioner Family | DX: R10.84 Generalized abdominal pain (principal); R10.11 Right upper quadrant pain | CPT/HCPCS: 74177; Q9967 ==